=== PATIENT | female | born 1980 | race Caucasian/White ===

== ENCOUNTER 2016-11-11 15:28 | Emergency (ER) | payer OTHER ==
[2016-11-11 15:39] VITALS: BP 168/97; PULSE 78; TEMP 97.6; BMI 33.5
--- NOTE | 2016-11-11 15:44 | EDPRACDOC ---
- General Information Chief Complaint: Flu-Like Symptoms Stated Complaint: WHEEZING SHOB COUGH CONGESTION Time Seen by Provider: 11/11/16 15:37 Home Medications: Home Medications Hydralazine HCl 10 mg PO TID 7 Days 05/27/13 Neomy Sulf/Polymyx B Sulf/Hc [Cortisporin Ear Solution] 10 ml OT QID 10 Days No Home Medications 0 NA DIR 05/27/13 Fluticasone Propionate [Flonase Nasal Madeline] 2 spray HUNTER DAILY #1 each 11/11/16 Loratadine [Claritin] 10 mg PO DAILY #30 tab 11/11/16 Allergies/Adverse Reactions: Allergies Allergy/AdvReac Type Severity Reaction Status Date / Time No Known Allergies Allergy Verified 05/27/13 19:14 - History of Present Illness Onset: 2 MONTHS HPI: PT COMPLAINS OF "ALLERGIES" FOR 2 MTHS, STATES WORSE OVER THE LAST MONTH, COMPLAINS OF SINUS CONGESTION AND DRAINAGE, NON-PROD COUGH AT TIMES, SNEEZING, WATERY EYES, STATES "WHEEZES" WITH EXERTION. STATES SHE SAW A "TELEDOC" THAT TOLD HER THAT SHE SHOULD COME TO THE ED. PT STATES HER PCP PRESCRIBED HER "SOMETHING FOR A SINUS INFECTION" THAT DID NOT HELP. Current Symptoms: Reports: Cough, Headache, Nasal Symptoms. Denies: Earache, Fever, Sore Throat, Myalgia, Nausea, Vomiting Shortness of Breath: Mild Cough: Reports: Non-productive Rhinorrhea: Reports: Clear Ear Symptoms: Reports: None Fever Severity/Quality: Reports: no fever Oral Intake: Normal Urinary Output: Normal Relevant History of: None Associated Signs & Symptoms:: Reports: Cough, Headache, Nasal Symptoms ED Past Medical History - History Reviewed Yes Nurses notes reviewed and agree except as marked - Patient Medical History Cardiac History: Reports: Hypertension - Social Medical History Smoking Status: Never smoker EDM Review of Systems - Review of Systems Constitutional: negative: Chills, Fever, Fatigue, Weakness Eyes: negative: Blurred Vision, Double Vision Ears: negative: Drainage, Pain Throat: negative: Pain Nose: Congestion Respiratory: Cough, Shortness of Breath, Wheezing Cardiovascular: negative: Chest Pain, Palpitations Gastrointestinal: negative: Diarrhea, Nausea, Vomiting Genitourinary: negative: Dysuria, Frequency Neurological: Headache. negative: Dizziness, Numbness, Weakness Musculoskeletal: No Symptoms Reported Integumentary: No Symptoms Reported - Physical Exam Constitutional: Alert (Awake), No apparent distress Oriented to: Time, Person, Place Last recorded Vital Signs: Last Vital Signs Temp 97.6 F 11/11/16 15:37 Pulse 78 11/11/16 15:37 Resp 20 11/11/16 15:37 BP 168/97 11/11/16 15:37 Pulse Ox 98 11/11/16 15:37 Oxygen Pulse Oxygen Saturation 98 O2 Device Room Air Oxygen Flow Rate Fraction of Inspired Oxygen ( FIO2) - HEENT Head: Normal ( normocephalic) Eye Exam: Normal (PERRL, EOMI, Sclera white) Oropharynx: Normal (Pharynx:Moist without exudate,Gums-no swelling) Tympanic Membrane: Normal ENT EAC: Normal TMJ: Normal Nose: No Symptoms Reported (septum midline) Neck: Normal (FROM, trachea at midline) - Respiratory/Cardiovascular Respiratory: Normal - CTA (BBS clear to auscultation without adventitious sounds ) Cardiovascular: Normal (RRR without murmur, gallop or rub) - Integumentary Skin: Normal, Warm, Dry Lymphatics: Normal (no adenopathy) - Neurologic Memory Impaired: Normal Motor Function: Normal (Normal tone, Pulses 2+ No cyanosis or edema, FROM) Cranial Nerve: Normal (CN II-X11 intact sensation, strength 5/5) Cerebellar: Normal Mood Description: Normal Perception: Normal - Differential Diagnosis Allergic Rhinitis, Bronchitis, Pneumonia, Sinusitis, URI Decision Time to Discharge: 15:45 - Departure Disposition: Home Condition: Stable Final Diagnosis: Seasonal allergies Qualifiers: Allergic rhinitis trigger: unspecified Qualified Code(s): J30.2 - Other seasonal allergic rhinitis Instructions: Allergies (ED) Education/Counseling Given To: Patient Education/Counseling Given Regarding: Diagnosis, Treatment, Prognosis, Follow Up Referrals: None,No Provider [Primary Care Provider] - One Week Prescriptions: Fluticasone Propionate [Flonase Nasal Madeline] 2 spray HUNTER DAILY #1 each Loratadine [Claritin] 10 mg PO DAILY #30 tab Additional Instructions: PLEASE FOLLOW UP WITH YOUR DOCTOR FOR FURTHER EVALUATION, RETURN TO THE ED FOR ANY WORSENING SYMPTOMS OR CONCERNS.
== END 2016-11-11 16:00 | disposition home or self-care (01) ==
LOC: EDMC 15:28
DX: J30.2 Other seasonal allergic rhinitis (principal)
CPT/HCPCS: 99282